=== PATIENT | male | born 1930 | race Caucasian/White ===

== ENCOUNTER → 2017-04-23 | Outpatient (CLI) | payer MEDICARE, OTHER ==
[~2017-04-23] MED LIST: AMLO10TA2 PO; ASPI-496 PO; CALC0.25 PO; DOXA2TAB9 PO; FINA5TAB4 PO; FOLI-17 PO; GLIP5TAB10 PO; ISOS60TA PO; METO-95 PO; NITR0.4T28 SL; OMEP-110 PO; PHEN100C PO; SITA50TA PO; SODI650T PO
== END | disposition home or self-care (01) ==
LOC: CFH 13:51
PROVIDERS: ATTEND Family Medicine
DX: I08.0 Rheumatic disorders of both mitral and aortic valves (principal); I11.9 Hypertensive heart disease without heart failure; I25.10 Atherosclerotic heart disease of native coronary artery without angina pectoris; Z95.5 Presence of coronary angioplasty implant and graft
CPT/HCPCS: 93306

== ENCOUNTER 2017-06-16 12:19 | Inpatient (IN) | payer MEDICARE, OTHER ==
[~2017-06-16] VITALS: Ht 172.7 cm; Wt 71.0 kg
[2017-06-16] MEDS ORDERED: PANTOPRAZOLE 80 MG in SODIUM CHLORIDE 0.9% 50 ML IVPB ONE (12:55)
[2017-06-16] MEDS ORDERED: SODIUM CHLORIDE 0.9% 1,000ML IVBOLUS ONE (13:00)
[2017-06-16] MEDS ORDERED: SODIUM CHLORIDE FLUSH 10ML SYR IVF ONE (13:00)
[2017-06-16 13:21] LABS: INTERNATIONAL NORMALIZED RATIO 1.04 (0.93-1.1); PROTHROMBIN TIME 10.8 Seconds (9.6-11.5)
[2017-06-16 13:24] LABS: ABSOLUTE RETICS # 0.043 x10^6/uL (0.5-1.5); RETICULOCYTE COUNT % 1.21 % (0.5-1.5)
[2017-06-16 13:28] LABS: ALBUMIN 3.6 g/dL (3.4-5.0); ANION GAP 10 mmol/L (5-15); CALCIUM 8.7 mg/dL (8.5-10.1); CHLORIDE 107 mmol/L (98-107)
[2017-06-16] MEDS ORDERED: LABETALOL 5MG/ML, 20ML IVPush ONE ×2 (13:30→14:30)
[2017-06-16 13:33] LABS: % IRON SATURATION 51 % (20-55); ALANINE AMINOTRANSFERASE 23 U/L (12-78); ALKALINE PHOSPHATASE 81 U/L (45-117); BILIRUBIN,TOTAL 0.7 mg/dL (0.2-1.0); CREATININE 3.92 mg/dL (0.7-1.3); IRON LEVEL 79 mcg/dL (65-175); TOTAL IRON BINDING CAPACITY 155 mcg/dL (250-450); TOTAL PROTEIN 7.4 g/dL (6.4-8.2); TROPONIN I 0.033 ng/mL (0.000-0.045)
[2017-06-16 13:34] LABS: MEAN CORPUSCULAR HEMOGLOBIN 34.1 pg (27.5-34.5); MEAN CORPUSCULAR HGB CONC 32.1 g/dL (33.2-36.2); MEAN CORPUSCULAR VOLUME 106.4 fL (81-97); MEAN PLATELET VOLUME 11.7 fL (7.4-10.4); PLATELET COUNT 263 x10^3/uL (130-400); RED BLOOD COUNT 3.56 x10^6/uL (4.38-5.82); RED CELL DISTRIBUTION WIDTH 26.5 % (9.4-14.8)
[2017-06-16 13:35] LABS: HEMOGRAM NOTE RECHECKED; MD YES
[2017-06-16 13:37] LABS: LYMPH#(MANUAL) 4.59 x10^3/uL (1-3.4); LYMPHS% (MANUAL) 51 % (22-44); MONOS#(MANUAL) 0.63 x10^3/uL (0.3-2.7); MONOS% (MANUAL) 7 % (2-9); SEG#(MANUAL) 3.78 x10^3/uL (1.8-6.8); SEGS% (MANUAL) 42 % (42-75)
[2017-06-16 13:38] LABS: ANISOCYTOSIS 2+
[2017-06-16 13:39] LABS: MICROCYTOSIS 1+; OVALOCYTES 2+; TEAR DROPS 1+
[2017-06-16 13:43] LABS: <PLATELET ESTIMATE> ADEQUATE; GIANT PLATELETS 1+; LARGE PLATELETS 1+
[2017-06-16 13:46] LABS: POLYCHROMASIA 1+
[2017-06-16 13:47] LABS: HYPOCHROMIA 1+
[2017-06-16 13:55] LABS: FOLATE LEVEL > 20.0 ng/mL (3.1-17.5)
[2017-06-16] MEDS: LABETALOL 5MG/ML, 20ML IVPush ONE ×2 (14:06→15:00)
[2017-06-16] MEDS ORDERED: LABETALOL 5MG/ML, 20ML ONE (14:09)
[2017-06-16] MEDS ORDERED: ASPIRIN 81 MG TABLET CHEW PO ONE (14:30)
[2017-06-16] MEDS ORDERED: LORazepam 2 MG/ML, 1ML ONE ×2 (14:50→19:03)
[2017-06-16] MEDS ORDERED: ONDANSETRON 2MG/ML, 2ML ONE (14:57)
[2017-06-16] MEDS ORDERED: CEFTRIAXONE PMX 1GM/50ML 50 ML ONE (15:27)
[2017-06-16] MEDS ORDERED: PLEASE ENTER WEIGHT MC SCH (15:30)
[2017-06-16] MEDS: niCARDipine 50 MG in DEXTROSE 5% 500 ML IV PRN ×5 (16:11→17:58)
[2017-06-16] MEDS ORDERED: ONDANSETRON 2MG/ML, 2ML IVPush ONE (16:30)
[2017-06-16] MEDS ORDERED: LORazepam 2 MG/ML, 1ML IVPush ONE (16:30)
[2017-06-16] MEDS ORDERED: AMLODIPINE 5 MG TABLET PO ONE (18:00)
[2017-06-16] MEDS ORDERED: BISACODYL 10 MG SUPP PR PRN (18:00)
[2017-06-16] MEDS ORDERED: ACETAMINOPHEN 325 MG TABLET PO PRN (18:00)
[2017-06-16] MEDS: ISOSORBIDE DINITRATE 30 MG TABLET PO SCH ×2 (18:00→21:00)
[2017-06-16] MEDS: ISOSORBIDE MONONITRATE ER 60 MG TABLET PO SCH ×2 (18:00→21:00)
[2017-06-16] MEDS: METOPROLOL SUCCINATE 100 MG TAB.ER.24H PO SCH (21:00)
[2017-06-16] MEDS: OMEPRAZOLE 20 MG CAPSULE.DR PO SCH (21:00)
[2017-06-16] MEDS: SODIUM BICARBONATE 650 MG TABLET PO SCH (21:00)
[2017-06-16] MEDS: HEPARIN 5,000 UNITS/ML, 1ML SQ SCH (21:49)
[2017-06-16 23:00] VITALS: BP 177/97
[2017-06-16] MEDS ORDERED: ISOSORBIDE MONONITRATE MC SCH (23:00)
[2017-06-16] MEDS ORDERED: ISOSORBIDE DINITRATE MC SCH (23:00)
[2017-06-16] MEDS: LORazepam 2 MG/ML, 1ML IVPush PRN (23:19)
[2017-06-17] LABS: CULTURE INDICATED? YES; MICROSCOPIC INDICATED
[2017-06-17] MEDS: LABETALOL 5MG/ML, 20ML IVPush PRN ×2 (00:25→05:18)
[2017-06-17] MEDS: LORazepam 2 MG/ML, 1ML IVPush PRN (02:52)
[2017-06-17] MEDS: HEPARIN 5,000 UNITS/ML, 1ML SQ SCH ×3 (02:54→17:27)
[2017-06-17] MEDS: hydrALAzine 20 MG/ML, 1ML IV PRN ×2 (03:47→22:52)
[2017-06-17 03:55] VITALS: BP 159/77
[2017-06-17 04:20] LABS: MEAN CORPUSCULAR HEMOGLOBIN 34.1 pg (27.5-34.5); MEAN CORPUSCULAR HGB CONC 32.1 g/dL (33.2-36.2); MEAN PLATELET VOLUME 11.5 fL (7.4-10.4); PLATELET COUNT 231 x10^3/uL (130-400); RED BLOOD COUNT 3.16 x10^6/uL (4.38-5.82)
[2017-06-17 04:25] LABS: ALANINE AMINOTRANSFERASE 22 U/L (12-78); ALBUMIN 3.4 g/dL (3.4-5.0); ANION GAP 13 mmol/L (5-15); CALCIUM 8.5 mg/dL (8.5-10.1); CHLORIDE 110 mmol/L (98-107); CREATININE 3.98 mg/dL (0.7-1.3)
[2017-06-17 04:28] LABS: ALKALINE PHOSPHATASE 64 U/L (45-117); BILIRUBIN,TOTAL 0.5 mg/dL (0.2-1.0); TOTAL PROTEIN 6.8 g/dL (6.4-8.2)
[2017-06-17 04:45] LABS: BASOPHILS # (AUTO) 0.05 x10^3/uL (0-0.1); BASOPHILS % (AUTO) 0 % (0-1); EOSINOPHILS # (AUTO) 0.06 x10^3/uL (0-0.4); EOSINOPHILS % (AUTO) 1 % (1-7); LYMPHOCYTES # (AUTO) 1.98 x10^3/uL (1-3.4); LYMPHOCYTES % (AUTO) 19 % (22-44); MD MORPH REVIEW ONLY; MONOCYTES % (AUTO) 11 % (2-9); NEUTROPHILS % (AUTO) 70 % (42-75)
[2017-06-17 04:49] LABS: <PLATELET ESTIMATE> ADEQUATE; ANISOCYTOSIS 2+; HYPOCHROMIA 1+; LARGE PLATELETS 1+; MICROCYTOSIS 1+; OVALOCYTES 1+; POLYCHROMASIA 1+; TEAR DROPS 1+
[2017-06-17 04:50] LABS: GIANT PLATELETS 1+
[2017-06-17] MEDS: ISOSORBIDE MONONITRATE ER 60 MG TABLET PO SCH (04:55)
[2017-06-17] MEDS: ISOSORBIDE DINITRATE 30 MG TABLET PO SCH ×4 (04:55→21:02)
[2017-06-17] MEDS: PHENYTOIN 100 MG CAPSULE PO SCH (08:18)
[2017-06-17] MEDS: DOXAZOSIN 2MG TABLET PO SCH (08:18)
[2017-06-17] MEDS: ASPIRIN 81 MG TABLET EC PO SCH (08:18)
[2017-06-17] MEDS: FINASTERIDE 5 MG TABLET PO SCH (08:19)
[2017-06-17] MEDS: OMEPRAZOLE 20 MG CAPSULE.DR PO SCH ×2 (08:19→21:02)
[2017-06-17] MEDS: SODIUM BICARBONATE 650 MG TABLET PO SCH ×2 (08:19→21:02)
[2017-06-17] MEDS: FOLIC ACID 1 MG TABLET PO SCH (08:19)
[2017-06-17] MEDS: METOPROLOL SUCCINATE 100 MG TAB.ER.24H PO SCH ×2 (08:19→21:02)
[2017-06-17] MEDS ORDERED: TAMSULOSIN 0.4 MG CAP.ER.24H PO ONE (12:30)
[2017-06-17] MEDS ORDERED: MAGNESIUM SULFATE PMX 2GM/50ML 50 ML IV ONE (13:00)
[2017-06-17 20:45] VITALS: BP 178/73
[2017-06-17] MEDS: AMLODIPINE 5 MG TABLET PO SCH (21:02)
[2017-06-17 22:50] VITALS: BP 166/71
[2017-06-17 23:46] VITALS: BP 166/71
[2017-06-18] VITALS (8 sets, daily range): BP systolic 144–193; BP diastolic 56–84
[2017-06-18] MEDS: LABETALOL 5MG/ML, 20ML IVPush PRN (01:06)
[2017-06-18] MEDS ORDERED: SODIUM CHLORIDE 0.9%, 500ML IVBOLUS ONE (02:30)
[2017-06-18] MEDS: HEPARIN 5,000 UNITS/ML, 1ML SQ SCH ×3 (02:45→17:40)
[2017-06-18] MEDS: hydrALAzine 20 MG/ML, 1ML IV PRN ×2 (03:48→13:57)
[2017-06-18 06:14] LABS: CHLORIDE 111 mmol/L (98-107)
[2017-06-18] MEDS: ISOSORBIDE DINITRATE 30 MG TABLET PO SCH ×4 (06:20→20:37)
[2017-06-18 06:35] LABS: ALANINE AMINOTRANSFERASE 16 U/L (12-78); ALBUMIN 2.9 g/dL (3.4-5.0); ALKALINE PHOSPHATASE 60 U/L (45-117); ANION GAP 14 mmol/L (5-15); BILIRUBIN,TOTAL 0.5 mg/dL (0.2-1.0); CALCIUM 7.8 mg/dL (8.5-10.1); TOTAL PROTEIN 6.2 g/dL (6.4-8.2)
[2017-06-18] MEDS ORDERED: TAMSULOSIN 0.4 MG CAP.ER.24H ONE (07:26)
[2017-06-18] MEDS: SODIUM BICARBONATE 650 MG TABLET PO SCH ×2 (07:32→20:36)
[2017-06-18] MEDS: FOLIC ACID 1 MG TABLET PO SCH (07:32)
[2017-06-18] MEDS: AMLODIPINE 5 MG TABLET PO SCH ×2 (07:32→20:37)
[2017-06-18] MEDS: PHENYTOIN 100 MG CAPSULE PO SCH (07:32)
[2017-06-18] MEDS: TAMSULOSIN 0.4 MG CAP.ER.24H PO SCH (07:32)
[2017-06-18] MEDS: FINASTERIDE 5 MG TABLET PO SCH (07:32)
[2017-06-18] MEDS: METOPROLOL SUCCINATE 100 MG TAB.ER.24H PO SCH ×2 (07:32→20:38)
[2017-06-18] MEDS: OMEPRAZOLE 20 MG CAPSULE.DR PO SCH ×2 (07:32→20:37)
[2017-06-18] MEDS: ASPIRIN 81 MG TABLET EC PO SCH (07:32)
[2017-06-18] MEDS: DOXAZOSIN 2MG TABLET PO SCH (07:33)
[2017-06-18 07:59] LABS: MEAN CORPUSCULAR HEMOGLOBIN 34.5 pg (27.5-34.5); MEAN CORPUSCULAR HGB CONC 32.5 g/dL (33.2-36.2); MEAN CORPUSCULAR VOLUME 106.2 fL (81-97); MEAN PLATELET VOLUME 12.6 fL (7.4-10.4); PLATELET COUNT 219 x10^3/uL (130-400); RED BLOOD COUNT 3.06 x10^6/uL (4.38-5.82); RED CELL DISTRIBUTION WIDTH 25.7 % (9.4-14.8)
[2017-06-18 08:00] LABS: BASOPHILS # (AUTO) 0.05 x10^3/uL (0-0.1); BASOPHILS % (AUTO) 1 % (0-1); EOSINOPHILS # (AUTO) 0.18 x10^3/uL (0-0.4); EOSINOPHILS % (AUTO) 2 % (1-7); LYMPHOCYTES # (AUTO) 2.48 x10^3/uL (1-3.4); LYMPHOCYTES % (AUTO) 30 % (22-44); MD SCAN; MONOCYTES % (AUTO) 13 % (2-9); NEUTROPHILS # (AUTO) 4.42 x10^3/uL (1.8-6.8); NEUTROPHILS % (AUTO) 54 % (42-75)
[2017-06-18] MEDS ORDERED: FURO40TA6 PO (10:34)
[2017-06-19 00:11] VITALS: BP 176/88
[2017-06-19] MEDS: LABETALOL 5MG/ML, 20ML IVPush PRN (00:13)
[2017-06-19 01:16] VITALS: BP 179/82
[2017-06-19] MEDS: hydrALAzine 20 MG/ML, 1ML IV PRN (01:24)
[2017-06-19] MEDS: HEPARIN 5,000 UNITS/ML, 1ML SQ SCH ×3 (01:24→21:57)
[2017-06-19 02:41] VITALS: BP 157/73
[2017-06-19] MEDS: ISOSORBIDE DINITRATE 30 MG TABLET PO SCH (05:35)
[2017-06-19 05:56] LABS: CHLORIDE 109 mmol/L (98-107)
[2017-06-19 06:09] LABS: ANION GAP 11 mmol/L (5-15); CALCIUM 7.5 mg/dL (8.5-10.1); CREATININE 4.32 mg/dL (0.7-1.3)
[2017-06-19 08:27] VITALS: BP 161/79
[2017-06-19] MEDS ORDERED: METOPROLOL SUCCINATE 50 MG TAB.ER.24H PO SCH (09:00)
[2017-06-19] MEDS ORDERED: METOPROLOL SUCCINATE 100 MG TAB.ER.24H PO SCH (09:00)
[2017-06-19] MEDS ORDERED: METOPROLOL SUCCINATE 25 MG TAB.ER.24H ONE (09:04)
[2017-06-19] MEDS: TAMSULOSIN 0.4 MG CAP.ER.24H PO SCH (09:10)
[2017-06-19] MEDS: SODIUM BICARBONATE 650 MG TABLET PO SCH ×2 (09:10→21:57)
[2017-06-19] MEDS: OMEPRAZOLE 20 MG CAPSULE.DR PO SCH ×2 (09:10→22:04)
[2017-06-19] MEDS: FOLIC ACID 1 MG TABLET PO SCH (09:11)
[2017-06-19] MEDS: FINASTERIDE 5 MG TABLET PO SCH (09:11)
[2017-06-19] MEDS: AMLODIPINE 5 MG TABLET PO SCH (09:11)
[2017-06-19] MEDS: DOXAZOSIN 2MG TABLET PO SCH (09:11)
[2017-06-19] MEDS: PHENYTOIN 100 MG CAPSULE PO SCH (09:11)
[2017-06-19] MEDS: ASPIRIN 81 MG TABLET EC PO SCH (09:12)
[2017-06-19 09:57] LABS: CREATININE,URINE RANDOM 68.7 mg/dL
[2017-06-19] MEDS ORDERED: DOXAZOSIN 2MG TABLET PO ONE (11:00)
[2017-06-19] MEDS: ISOSORBIDE MONONITRATE ER 60 MG TABLET PO SCH (12:13)
[2017-06-19 14:30] VITALS: BP 129/65
[2017-06-19] MEDS ORDERED: CARVEDILOL 25 MG TABLET PO SCH (18:00)
[2017-06-19 20:16] VITALS: BP 179/71
[2017-06-19] MEDS ORDERED: AMLODIPINE 5 MG TABLET PO SCH ×2 (21:00)
[2017-06-19] MEDS: CARVEDILOL 25 MG TABLET PO SCH (21:58)
[2017-06-19] MEDS: CEFTRIAXONE 1,000 MG in DEXTROSE 5% 50 ML IVPB SCH (22:47)
[2017-06-20] VITALS (10 sets, daily range): BP systolic 82–188; BP diastolic 52–117
[2017-06-20] MEDS: HEPARIN 5,000 UNITS/ML, 1ML SQ SCH ×3 (05:15→20:28)
[2017-06-20 05:22] LABS: ALANINE AMINOTRANSFERASE 14 U/L (12-78); ALBUMIN 2.6 g/dL (3.4-5.0); ANION GAP 11 mmol/L (5-15); CALCIUM 7.4 mg/dL (8.5-10.1); CHLORIDE 109 mmol/L (98-107); CREATININE 4.21 mg/dL (0.7-1.3)
[2017-06-20 05:29] LABS: % IRON SATURATION 54 % (20-55); ALKALINE PHOSPHATASE 58 U/L (45-117); BILIRUBIN,TOTAL 0.5 mg/dL (0.2-1.0); IRON LEVEL 74 mcg/dL (65-175); TOTAL IRON BINDING CAPACITY 138 mcg/dL (250-450); TOTAL PROTEIN 5.6 g/dL (6.4-8.2)
[2017-06-20 05:58] LABS: BASOPHILS # (AUTO) 0.04 x10^3/uL (0-0.1); BASOPHILS % (AUTO) 1 % (0-1); EOSINOPHILS # (AUTO) 0.11 x10^3/uL (0-0.4); EOSINOPHILS % (AUTO) 2 % (1-7); LYMPHOCYTES # (AUTO) 2.61 x10^3/uL (1-3.4); LYMPHOCYTES % (AUTO) 39 % (22-44); MD MORPH REVIEW ONLY; MEAN CORPUSCULAR HEMOGLOBIN 34.8 pg (27.5-34.5); MEAN CORPUSCULAR HGB CONC 32.5 g/dL (33.2-36.2); MEAN CORPUSCULAR VOLUME 107.2 fL (81-97); MONOCYTES # (AUTO) 0.88 x10^3/uL (0.2-0.8); MONOCYTES % (AUTO) 13 % (2-9); NEUTROPHILS % (AUTO) 45 % (42-75); PLATELET COUNT 185 x10^3/uL (130-400); RED CELL DISTRIBUTION WIDTH 26.8 % (9.4-14.8)
[2017-06-20 05:59] LABS: ANISOCYTOSIS 2+; MICROCYTOSIS 1+; OVALOCYTES 1+; SCHISTOCYTES 1+; TEAR DROPS 1+
[2017-06-20 06:01] LABS: <PLATELET ESTIMATE> ADEQUATE; GIANT PLATELETS 1+; HYPOCHROMIA 1+; LARGE PLATELETS 1+; POLYCHROMASIA 1+
[2017-06-20] MEDS: ISOSORBIDE MONONITRATE ER 60 MG TABLET PO SCH (07:47)
[2017-06-20] MEDS: TAMSULOSIN 0.4 MG CAP.ER.24H PO SCH (07:48)
[2017-06-20] MEDS: FINASTERIDE 5 MG TABLET PO SCH (07:48)
[2017-06-20] MEDS: PHENYTOIN 100 MG CAPSULE PO SCH (07:48)
[2017-06-20] MEDS: DOXAZOSIN 2MG TABLET PO SCH (07:48)
[2017-06-20] MEDS: FOLIC ACID 1 MG TABLET PO SCH (07:48)
[2017-06-20] MEDS: OMEPRAZOLE 20 MG CAPSULE.DR PO SCH ×2 (07:48→20:29)
[2017-06-20] MEDS: ASPIRIN 81 MG TABLET EC PO SCH (07:49)
[2017-06-20] MEDS: SODIUM BICARBONATE 650 MG TABLET PO SCH ×2 (07:49→20:29)
[2017-06-20] MEDS: CALCITRIOL 0.25 MCG CAPSULE PO SCH (07:49)
[2017-06-20] MEDS: POLYETHYLENE GLYCOL 17 GM PACKET PO PRN (07:49)
[2017-06-20] MEDS: CARVEDILOL 25 MG TABLET PO SCH ×2 (07:50→20:28)
[2017-06-20] MEDS ORDERED: SODIUM CHLORIDE 0.9%, 500ML IVBOLUS ONE (09:30)
[2017-06-20] MEDS: ERGOCALCIFEROL 50,000 UNIT CAPSULE PO SCH (09:39)
[2017-06-20] MEDS: DARBEPOETIN 40 MCG/ML SQ SCH (12:55)
[2017-06-20] MEDS: CEFTRIAXONE 1,000 MG in DEXTROSE 5% 50 ML IVPB SCH (22:07)
[2017-06-20] MEDS: AMLODIPINE 5 MG TABLET PO SCH ×2 (22:08→22:18)
[2017-06-21] VITALS (13 sets, daily range): BP systolic 101–193; BP diastolic 50–82
[2017-06-21] MEDS: HEPARIN 5,000 UNITS/ML, 1ML SQ SCH ×3 (05:11→20:13)
[2017-06-21] MEDS: hydrALAzine 20 MG/ML, 1ML IV PRN (05:12)
[2017-06-21] MEDS: TAMSULOSIN 0.4 MG CAP.ER.24H PO SCH (08:16)
[2017-06-21] MEDS: DOXAZOSIN 2MG TABLET PO SCH (08:16)
[2017-06-21] MEDS: CARVEDILOL 25 MG TABLET PO SCH ×2 (08:16→20:13)
[2017-06-21] MEDS: ASPIRIN 81 MG TABLET EC PO SCH (08:16)
[2017-06-21] MEDS: SODIUM BICARBONATE 650 MG TABLET PO SCH ×2 (08:17→20:13)
[2017-06-21] MEDS: OMEPRAZOLE 20 MG CAPSULE.DR PO SCH ×2 (08:17→20:13)
[2017-06-21] MEDS: ISOSORBIDE MONONITRATE ER 60 MG TABLET PO SCH (08:17)
[2017-06-21] MEDS: FINASTERIDE 5 MG TABLET PO SCH (08:17)
[2017-06-21] MEDS: FOLIC ACID 1 MG TABLET PO SCH (08:17)
[2017-06-21] MEDS: PHENYTOIN 100 MG CAPSULE PO SCH (08:17)
[2017-06-21] MEDS ORDERED: ONDANSETRON 2MG/ML, 2ML ONE (09:45)
[2017-06-21] MEDS ORDERED: ONDANSETRON 2MG/ML, 2ML IVPush PRN (10:00)
[2017-06-21] MEDS ORDERED: SODIUM CHLORIDE 0.9%, 250ML IVBOLUS ONE ×2 (11:00→11:15)
[2017-06-21] MEDS ORDERED: AMLODIPINE 5 MG TABLET PO SCH (21:00)
[2017-06-21] MEDS: CEFTRIAXONE 1,000 MG in DEXTROSE 5% 50 ML IVPB SCH (22:31)
[2017-06-22] VITALS (12 sets, daily range): BP systolic 138–189; BP diastolic 65–78
[2017-06-22] MEDS: HEPARIN 5,000 UNITS/ML, 1ML SQ SCH ×3 (05:00→20:16)
[2017-06-22] MEDS: FOLIC ACID 1 MG TABLET PO SCH (08:57)
[2017-06-22] MEDS: ASPIRIN 81 MG TABLET EC PO SCH (08:57)
[2017-06-22] MEDS: FINASTERIDE 5 MG TABLET PO SCH (08:57)
[2017-06-22] MEDS: TAMSULOSIN 0.4 MG CAP.ER.24H PO SCH (08:57)
[2017-06-22] MEDS: OMEPRAZOLE 20 MG CAPSULE.DR PO SCH ×3 (08:57→21:42)
[2017-06-22] MEDS: CARVEDILOL 25 MG TABLET PO SCH ×2 (10:21→20:17)
[2017-06-22] MEDS: SODIUM BICARBONATE 650 MG TABLET PO SCH ×2 (10:22→20:16)
[2017-06-22] MEDS: ISOSORBIDE MONONITRATE ER 60 MG TABLET PO SCH (10:22)
[2017-06-22] MEDS: PHENYTOIN 100 MG CAPSULE PO SCH (10:22)
[2017-06-22] MEDS: DOXAZOSIN 2MG TABLET PO SCH (11:18)
[2017-06-22] MEDS: AMLODIPINE 5 MG TABLET PO SCH (21:43)
[2017-06-22] MEDS ORDERED: CEFTRIAXONE 1,000 MG in DEXTROSE 5% 50 ML IVPB SCH (22:30)
[2017-06-22] MEDS: hydrALAzine 20 MG/ML, 1ML IV PRN (22:48)
[2017-06-23] VITALS (11 sets, daily range): BP systolic 142–202; BP diastolic 58–86
[2017-06-23 05:30] LABS: MEAN CORPUSCULAR HEMOGLOBIN 34.6 pg (27.5-34.5); MEAN CORPUSCULAR HGB CONC 32.7 g/dL (33.2-36.2); MEAN CORPUSCULAR VOLUME 105.9 fL (81-97); RED BLOOD COUNT 2.94 x10^6/uL (4.38-5.82); RED CELL DISTRIBUTION WIDTH 27.4 % (9.4-14.8)
[2017-06-23 05:37] LABS: MEAN PLATELET VOLUME 13.7 fL (7.4-10.4); PLATELET COUNT 177 x10^3/uL (130-400)
[2017-06-23 05:46] LABS: ALBUMIN 2.6 g/dL (3.4-5.0); ANION GAP 10 mmol/L (5-15); CALCIUM 7.7 mg/dL (8.5-10.1); CHLORIDE 108 mmol/L (98-107)
[2017-06-23 05:51] LABS: ALANINE AMINOTRANSFERASE 37 U/L (12-78); ALKALINE PHOSPHATASE 59 U/L (45-117); BILIRUBIN,TOTAL 0.3 mg/dL (0.2-1.0); CREATININE 4.44 mg/dL (0.7-1.3); TOTAL PROTEIN 5.6 g/dL (6.4-8.2)
[2017-06-23 06:21] LABS: MD YES
[2017-06-23 06:25] LABS: ANISOCYTOSIS 2+; EOS#(MANUAL) 0.07 x10^3/uL (0.0-0.4); EOS% (MANUAL) 1 % (1-7); HYPOCHROMIA 1+; LYMPH#(MANUAL) 2.86 x10^3/uL (1-3.4); LYMPHS% (MANUAL) 44 % (22-44); MICROCYTOSIS 1+; MONOS#(MANUAL) 0.98 x10^3/uL (0.3-2.7); MONOS% (MANUAL) 15 % (2-9); OVALOCYTES 1+; POLYCHROMASIA 1+; SCHISTOCYTES 1+; SEGS% (MANUAL) 40 % (42-75); TEAR DROPS 1+
[2017-06-23 06:26] LABS: <PLATELET ESTIMATE> ADEQUATE; GIANT PLATELETS 1+; LARGE PLATELETS 1+
[2017-06-23] MEDS: FOLIC ACID 1 MG TABLET PO SCH (08:20)
[2017-06-23] MEDS: FINASTERIDE 5 MG TABLET PO SCH (08:20)
[2017-06-23] MEDS: OMEPRAZOLE 20 MG CAPSULE.DR PO SCH ×2 (08:20→20:09)
[2017-06-23] MEDS: ASPIRIN 81 MG TABLET EC PO SCH (08:20)
[2017-06-23] MEDS: SODIUM BICARBONATE 650 MG TABLET PO SCH ×4 (08:20→20:09)
[2017-06-23] MEDS: TAMSULOSIN 0.4 MG CAP.ER.24H PO SCH (08:20)
[2017-06-23] MEDS: PHENYTOIN 100 MG CAPSULE PO SCH (08:20)
[2017-06-23] MEDS: HEPARIN 5,000 UNITS/ML, 1ML SQ SCH ×3 (08:21→23:30)
[2017-06-23] MEDS: ISOSORBIDE MONONITRATE ER 60 MG TABLET PO SCH (09:39)
[2017-06-23] MEDS: CALCITRIOL 0.25 MCG CAPSULE PO SCH (09:39)
[2017-06-23] MEDS: CARVEDILOL 25 MG TABLET PO SCH ×2 (09:39→20:09)
[2017-06-23] MEDS: DOXAZOSIN 2MG TABLET PO SCH (12:35)
[2017-06-23] MEDS: AMLODIPINE 5 MG TABLET PO SCH (21:37)
[2017-06-23] MEDS ORDERED: CEFTRIAXONE 1,000 MG in SODIUM CHLORIDE 0.9% 50 ML IV SCH (22:30)
[2017-06-24 01:54] VITALS: BP 180/68
[2017-06-24 06:03] LABS: ALANINE AMINOTRANSFERASE 34 U/L (12-78); ANION GAP 12 mmol/L (5-15); CALCIUM 7.9 mg/dL (8.5-10.1); CHLORIDE 104 mmol/L (98-107)
[2017-06-24 06:05] LABS: ALKALINE PHOSPHATASE 66 U/L (45-117); BILIRUBIN,TOTAL 0.3 mg/dL (0.2-1.0); TOTAL PROTEIN 6.3 g/dL (6.4-8.2)
[2017-06-24 06:45] LABS: MD YES; MEAN CORPUSCULAR HEMOGLOBIN 35.2 pg (27.5-34.5); MEAN CORPUSCULAR VOLUME 106.4 fL (81-97); MEAN PLATELET VOLUME 12.5 fL (7.4-10.4); PLATELET COUNT 185 x10^3/uL (130-400); RED BLOOD COUNT 2.97 x10^6/uL (4.38-5.82); RED CELL DISTRIBUTION WIDTH 26.9 % (9.4-14.8)
[2017-06-24 06:48] LABS: BAND#(MANUAL) 0.19 x10^3/uL; BANDS%(MANUAL) 3 % (0-7); EOS#(MANUAL) 0.06 x10^3/uL (0.0-0.4); EOS% (MANUAL) 1 % (1-7); LYMPH#(MANUAL) 2.36 x10^3/uL (1-3.4); LYMPHS% (MANUAL) 38 % (22-44); MONOS#(MANUAL) 0.74 x10^3/uL (0.3-2.7); MONOS% (MANUAL) 12 % (2-9); REACTIVE LYMPHS # (MANUAL) 0.06 x10^3/uL (0-0); REACTIVE LYMPHS % (MANUAL) 1 % (0-0); SEG#(MANUAL) 2.79 x10^3/uL (1.8-6.8); SEGS% (MANUAL) 45 % (42-75)
[2017-06-24 06:49] LABS: ANISOCYTOSIS 2+; HYPOCHROMIA 1+; MICROCYTOSIS 1+; OVALOCYTES 1+; POLYCHROMASIA 1+; SCHISTOCYTES 1+; TEAR DROPS 1+
[2017-06-24 06:50] LABS: <PLATELET ESTIMATE> ADEQUATE; GIANT PLATELETS 1+; LARGE PLATELETS 1+
[2017-06-24] MEDS: HEPARIN 5,000 UNITS/ML, 1ML SQ SCH ×3 (07:23→23:26)
[2017-06-24 08:07] VITALS: BP 193/68
[2017-06-24] MEDS: ISOSORBIDE MONONITRATE ER 60 MG TABLET PO SCH (08:17)
[2017-06-24] MEDS: CARVEDILOL 25 MG TABLET PO SCH ×2 (08:17→20:16)
[2017-06-24] MEDS ORDERED: LIDOCAINE 2%, 20ML ONE (08:30)
[2017-06-24] MEDS ORDERED: NALOXONE 1 MG/ML, 2ML ONE (08:48)
[2017-06-24] MEDS ORDERED: FENTANYL PF 100 MCG/2ML ONE ×2 (08:48)
[2017-06-24] MEDS ORDERED: MIDAZOLAM 1 MG/ML, 2ML ONE ×2 (08:48)
[2017-06-24] MEDS ORDERED: FLUMAZENIL 0.1 MG/1 ML, 5ML ONE (08:48)
[2017-06-24] MEDS: DOXAZOSIN 2MG TABLET PO SCH (09:00)
[2017-06-24] MEDS: ASPIRIN 81 MG TABLET EC PO SCH (09:00)
[2017-06-24 14:06] VITALS: BP 141/74
[2017-06-24] MEDS: FINASTERIDE 5 MG TABLET PO SCH (14:17)
[2017-06-24] MEDS: TAMSULOSIN 0.4 MG CAP.ER.24H PO SCH (14:17)
[2017-06-24] MEDS: FOLIC ACID 1 MG TABLET PO SCH (14:17)
[2017-06-24] MEDS: OMEPRAZOLE 20 MG CAPSULE.DR PO SCH ×2 (14:17→20:16)
[2017-06-24] MEDS: PHENYTOIN 100 MG CAPSULE PO SCH (14:18)
[2017-06-24 17:19] VITALS: BP 172/71
[2017-06-24 19:21] VITALS: BP 163/71
[2017-06-24 21:37] VITALS: BP 155/74
[2017-06-24] MEDS: AMLODIPINE 5 MG TABLET PO SCH (21:44)
[2017-06-25 02:13] VITALS: BP 167/70
[2017-06-25 05:43] LABS: ALBUMIN 2.6 g/dL (3.4-5.0); ANION GAP 8 mmol/L (5-15); CALCIUM 7.6 mg/dL (8.5-10.1); CHLORIDE 106 mmol/L (98-107)
[2017-06-25 05:48] LABS: ALANINE AMINOTRANSFERASE 28 U/L (12-78); ALKALINE PHOSPHATASE 57 U/L (45-117); BILIRUBIN,TOTAL 0.4 mg/dL (0.2-1.0); CREATININE 3.34 mg/dL (0.7-1.3); TOTAL PROTEIN 5.6 g/dL (6.4-8.2)
[2017-06-25 06:01] LABS: MD YES; MEAN CORPUSCULAR HEMOGLOBIN 34.5 pg (27.5-34.5); MEAN CORPUSCULAR HGB CONC 32.7 g/dL (33.2-36.2); MEAN CORPUSCULAR VOLUME 105.3 fL (81-97); MEAN PLATELET VOLUME 13.1 fL (7.4-10.4); PLATELET COUNT 181 x10^3/uL (130-400); RED BLOOD COUNT 2.74 x10^6/uL (4.38-5.82); RED CELL DISTRIBUTION WIDTH 26.6 % (9.4-14.8)
[2017-06-25 06:04] LABS: ANISOCYTOSIS 2+; BAND#(MANUAL) 0.07 x10^3/uL; BANDS%(MANUAL) 1 % (0-7); EOS% (MANUAL) 3 % (1-7); HYPOCHROMIA 1+; LYMPH#(MANUAL) 1.81 x10^3/uL (1-3.4); LYMPHS% (MANUAL) 27 % (22-44); MICROCYTOSIS 1+; MONOS% (MANUAL) 12 % (2-9); REACTIVE LYMPHS # (MANUAL) 0.13 x10^3/uL (0-0); REACTIVE LYMPHS % (MANUAL) 2 % (0-0); SEG#(MANUAL) 3.69 x10^3/uL (1.8-6.8); SEGS% (MANUAL) 55 % (42-75)
[2017-06-25 06:05] LABS: <PLATELET ESTIMATE> ADEQUATE; GIANT PLATELETS 1+; LARGE PLATELETS 1+; OVALOCYTES 1+; POLYCHROMASIA 1+; SCHISTOCYTES 1+; TEAR DROPS 1+
[2017-06-25 07:14] VITALS: BP 186/82
[2017-06-25] MEDS: HEPARIN 5,000 UNITS/ML, 1ML SQ SCH ×3 (07:30→22:41)
[2017-06-25] MEDS: DOXAZOSIN 2MG TABLET PO SCH (09:00)
[2017-06-25] MEDS: FOLIC ACID 1 MG TABLET PO SCH (09:00)
[2017-06-25] MEDS: PHENYTOIN 100 MG CAPSULE PO SCH (09:06)
[2017-06-25] MEDS: TAMSULOSIN 0.4 MG CAP.ER.24H PO SCH (09:07)
[2017-06-25] MEDS: OMEPRAZOLE 20 MG CAPSULE.DR PO SCH ×2 (09:07→22:29)
[2017-06-25] MEDS: FINASTERIDE 5 MG TABLET PO SCH (09:07)
[2017-06-25] MEDS: ASPIRIN 81 MG TABLET EC PO SCH (09:07)
[2017-06-25] MEDS: CARVEDILOL 25 MG TABLET PO SCH ×2 (09:07→22:39)
[2017-06-25 15:18] VITALS: BP 122/97
[2017-06-25 20:00] VITALS: BP 127/80
[2017-06-25] MEDS ORDERED: LOSARTAN 25MG TABLET PO SCH (21:00)
[2017-06-25 22:30] VITALS: BP 171/77
[2017-06-25] MEDS: AMLODIPINE 5 MG TABLET PO SCH (22:34)
[2017-06-26] VITALS (9 sets, daily range): BP systolic 135–198; BP diastolic 72–86
[2017-06-26 05:35] LABS: CHLORIDE 103 mmol/L (98-107)
[2017-06-26 05:52] LABS: ALANINE AMINOTRANSFERASE 29 U/L (12-78); ALBUMIN 2.5 g/dL (3.4-5.0); ALKALINE PHOSPHATASE 58 U/L (45-117); ANION GAP 10 mmol/L (5-15); BILIRUBIN,TOTAL 0.4 mg/dL (0.2-1.0); CALCIUM 7.5 mg/dL (8.5-10.1); CREATININE 3.07 mg/dL (0.7-1.3); TOTAL PROTEIN 5.4 g/dL (6.4-8.2)
[2017-06-26 05:57] LABS: BASOPHILS # (AUTO) 0.04 x10^3/uL (0-0.1); BASOPHILS % (AUTO) 1 % (0-1); EOSINOPHILS # (AUTO) 0.07 x10^3/uL (0-0.4); EOSINOPHILS % (AUTO) 1 % (1-7); LYMPHOCYTES # (AUTO) 2.55 x10^3/uL (1-3.4); LYMPHOCYTES % (AUTO) 36 % (22-44); MD SCAN; MEAN CORPUSCULAR HEMOGLOBIN 34.1 pg (27.5-34.5); MEAN CORPUSCULAR HGB CONC 32.1 g/dL (33.2-36.2); MEAN CORPUSCULAR VOLUME 106.2 fL (81-97); MEAN PLATELET VOLUME 12.2 fL (7.4-10.4); MONOCYTES # (AUTO) 1.29 x10^3/uL (0.2-0.8); MONOCYTES % (AUTO) 18 % (2-9); NEUTROPHILS # (AUTO) 3.11 x10^3/uL (1.8-6.8); NEUTROPHILS % (AUTO) 44 % (42-75); PLATELET COUNT 175 x10^3/uL (130-400); RED BLOOD COUNT 2.69 x10^6/uL (4.38-5.82)
[2017-06-26] MEDS: HEPARIN 5,000 UNITS/ML, 1ML SQ SCH ×2 (07:30→15:30)
[2017-06-26] MEDS: TAMSULOSIN 0.4 MG CAP.ER.24H PO SCH (09:00)
[2017-06-26] MEDS: DOXAZOSIN 2MG TABLET PO SCH (09:00)
[2017-06-26] MEDS: OMEPRAZOLE 20 MG CAPSULE.DR PO SCH ×2 (09:00→20:33)
[2017-06-26] MEDS ORDERED: ISOSORBIDE MONONITRATE ER 30 MG TABLET PO SCH ×2 (09:00→21:00)
[2017-06-26] MEDS: CARVEDILOL 25 MG TABLET PO SCH (09:00)
[2017-06-26] MEDS: FOLIC ACID 1 MG TABLET PO SCH (16:07)
[2017-06-26] MEDS: ASPIRIN 81 MG TABLET EC PO SCH (16:07)
[2017-06-26] MEDS: PHENYTOIN 100 MG CAPSULE PO SCH (16:08)
[2017-06-26] MEDS: FINASTERIDE 5 MG TABLET PO SCH (16:08)
[2017-06-26] MEDS: POLYETHYLENE GLYCOL 17 GM PACKET PO PRN (20:33)
[2017-06-26] MEDS: AMLODIPINE 5 MG TABLET PO SCH (20:33)
[2017-06-26] MEDS ORDERED: LOSARTAN 50MG TABLET PO SCH ×2 (21:00)
[2017-06-26] MEDS ORDERED: CARVEDILOL 12.5 MG TABLET PO SCH (21:00)
[2017-06-27] MEDS: HEPARIN 5,000 UNITS/ML, 1ML SQ SCH ×4 (00:47→22:33)
[2017-06-27 01:53] VITALS: BP 186/76
[2017-06-27] MEDS: LABETALOL 5MG/ML, 20ML IVPush PRN (01:57)
[2017-06-27 05:38] LABS: ALBUMIN 2.5 g/dL (3.4-5.0); ANION GAP 7 mmol/L (5-15); CALCIUM 7.6 mg/dL (8.5-10.1); CHLORIDE 102 mmol/L (98-107)
[2017-06-27 05:44] LABS: ALANINE AMINOTRANSFERASE 30 U/L (12-78); ALKALINE PHOSPHATASE 57 U/L (45-117); BILIRUBIN,TOTAL 0.6 mg/dL (0.2-1.0); CREATININE 2.21 mg/dL (0.7-1.3); TOTAL PROTEIN 5.5 g/dL (6.4-8.2)
[2017-06-27 05:51] VITALS: BP 164/52
[2017-06-27 06:16] LABS: MD YES; MEAN CORPUSCULAR HEMOGLOBIN 34.7 pg (27.5-34.5); MEAN CORPUSCULAR HGB CONC 32.7 g/dL (33.2-36.2); MEAN CORPUSCULAR VOLUME 106.3 fL (81-97); PLATELET COUNT 192 x10^3/uL (130-400); RED BLOOD COUNT 2.64 x10^6/uL (4.38-5.82); RED CELL DISTRIBUTION WIDTH 26.2 % (9.4-14.8)
[2017-06-27 06:18] LABS: LYMPHS% (MANUAL) 37 % (22-44); REACTIVE LYMPHS # (MANUAL) 0.22 x10^3/uL (0-0); REACTIVE LYMPHS % (MANUAL) 3 % (0-0)
[2017-06-27 06:19] LABS: ANISOCYTOSIS 2+; HYPOCHROMIA 1+; MICROCYTOSIS 1+; MONOS#(MANUAL) 0.95 x10^3/uL (0.3-2.7); MONOS% (MANUAL) 13 % (2-9); OVALOCYTES 1+; SCHISTOCYTES 1+; SEG#(MANUAL) 3.43 x10^3/uL (1.8-6.8); SEGS% (MANUAL) 47 % (42-75)
[2017-06-27 06:20] LABS: TEAR DROPS 1+
[2017-06-27 06:21] LABS: <PLATELET ESTIMATE> ADEQUATE; GIANT PLATELETS 1+; LARGE PLATELETS 1+
[2017-06-27 07:01] VITALS: BP 166/73
[2017-06-27] MEDS ORDERED: DOXAZOSIN 2MG TABLET PO SCH (09:00)
[2017-06-27] MEDS: FOLIC ACID 1 MG TABLET PO SCH (10:03)
[2017-06-27] MEDS: PHENYTOIN 100 MG CAPSULE PO SCH (10:04)
[2017-06-27] MEDS: ERGOCALCIFEROL 50,000 UNIT CAPSULE PO SCH (10:04)
[2017-06-27] MEDS: OMEPRAZOLE 20 MG CAPSULE.DR PO SCH ×2 (10:04→22:31)
[2017-06-27] MEDS: ASPIRIN 81 MG TABLET EC PO SCH (10:05)
[2017-06-27] MEDS: CALCITRIOL 0.25 MCG CAPSULE PO SCH (10:05)
[2017-06-27] MEDS: FINASTERIDE 5 MG TABLET PO SCH (14:01)
[2017-06-27] MEDS: DARBEPOETIN 40 MCG/ML SQ SCH (14:01)
[2017-06-27 14:08] VITALS: BP 144/83
[2017-06-27] MEDS: CARVEDILOL 25 MG TABLET PO SCH ×2 (18:26→22:21)
[2017-06-27 19:59] VITALS: BP 181/71
[2017-06-27] MEDS ORDERED: LOSARTAN 50MG TABLET PO SCH (21:00)
[2017-06-27] MEDS: AMLODIPINE 5 MG TABLET PO SCH (22:31)
[2017-06-27] MEDS: TAMSULOSIN 0.4 MG CAP.ER.24H PO SCH (22:32)
[2017-06-28 01:45] VITALS: BP 191/81
[2017-06-28] MEDS: LABETALOL 5MG/ML, 20ML IVPush PRN (02:10)
[2017-06-28 04:16] VITALS: BP 178/82
[2017-06-28] MEDS ORDERED: CARVEDILOL 25 MG TABLET PO SCH (06:00)
[2017-06-28] MEDS: HEPARIN 5,000 UNITS/ML, 1ML SQ SCH ×2 (07:30→15:30)
[2017-06-28 08:58] LABS: ALBUMIN 2.7 g/dL (3.4-5.0); ANION GAP 7 mmol/L (5-15); CALCIUM 7.8 mg/dL (8.5-10.1); CHLORIDE 102 mmol/L (98-107); CREATININE 3.12 mg/dL (0.7-1.3)
[2017-06-28] MEDS ORDERED: DOXAZOSIN 2MG TABLET PO SCH (09:00)
[2017-06-28 09:29] VITALS: BP 163/70
[2017-06-28] MEDS ORDERED: DOXA2TAB9 PO (12:01)
[2017-06-28] MEDS ORDERED: ERGO500017 PO (12:01)
[2017-06-28] MEDS ORDERED: LOSA50TA2 PO (12:01)
[2017-06-28] MEDS ORDERED: CARV25TA12 PO (12:01)
[2017-06-28 13:30] VITALS: BP 172/84
[2017-06-28] MEDS: PHENYTOIN 100 MG CAPSULE PO SCH (14:58)
[2017-06-28] MEDS: ASPIRIN 81 MG TABLET EC PO SCH (14:58)
[2017-06-28] MEDS: TAMSULOSIN 0.4 MG CAP.ER.24H PO SCH (14:58)
[2017-06-28] MEDS: OMEPRAZOLE 20 MG CAPSULE.DR PO SCH (14:59)
[2017-06-28] MEDS: FOLIC ACID 1 MG TABLET PO SCH (14:59)
[2017-06-28] MEDS: FINASTERIDE 5 MG TABLET PO SCH (14:59)
== END 2017-06-28 16:40 | DRG 673 ==
LOC: ED 15:23 → EDIP 15:24 → ED 18:02 → CCU 22:39 → 4EST 06-17 20:27 → 4WST 06-24 11:54
PROVIDERS: ADMIT Hospitalist; ATTEND Hospitalist
PROC: 0JH63XZ Insertion of Tunneled Vascular Access Device into Chest Subcutaneous Tissue and Fascia, Percutaneous Approach (ICD-10-PCS; principal; 2017-06-24)
PROC: 02HV33Z Insertion of Infusion Device into Superior Vena Cava, Percutaneous Approach (ICD-10-PCS; 2017-06-24)
PROC: B5181ZA Fluoroscopy of Superior Vena Cava using Low Osmolar Contrast, Guidance (ICD-10-PCS; 2017-06-24)
PROC: 5A1D70Z Performance of Urinary Filtration, Intermittent, Less than 6 Hours Per Day (ICD-10-PCS; 2017-06-24)
PROC: 5A1D70Z Performance of Urinary Filtration, Intermittent, Less than 6 Hours Per Day (ICD-10-PCS; 2017-06-25)
PROC: 5A1D70Z Performance of Urinary Filtration, Intermittent, Less than 6 Hours Per Day (ICD-10-PCS; 2017-06-26)
PROC: 5A1D70Z Performance of Urinary Filtration, Intermittent, Less than 6 Hours Per Day (ICD-10-PCS; 2017-06-28)
DX: N17.9 Acute kidney failure, unspecified (principal); E43 Unspecified severe protein-calorie malnutrition; E87.2 Acidosis; I67.4 Hypertensive encephalopathy; I12.0 Hypertensive chronic kidney disease with stage 5 chronic kidney disease or end stage renal disease; I16.1 Hypertensive emergency; R47.01 Aphasia; N39.0 Urinary tract infection, site not specified; E11.22 Type 2 diabetes mellitus with diabetic chronic kidney disease; E83.51 Hypocalcemia; N25.0 Renal osteodystrophy; N18.6 End stage renal disease; D63.1 Anemia in chronic kidney disease; D53.9 Nutritional anemia, unspecified; Z68.23 Body mass index [BMI] 23.0-23.9, adult; E55.9 Vitamin D deficiency, unspecified; G40.909 Epilepsy, unspecified, not intractable, without status epilepticus; H70.90 Unspecified mastoiditis, unspecified ear; I34.0 Nonrheumatic mitral (valve) insufficiency; K21.9 Gastro-esophageal reflux disease without esophagitis; N40.0 Benign prostatic hyperplasia without lower urinary tract symptoms; Z91.14 Patient's other noncompliance with medication regimen; N28.1 Cyst of kidney, acquired; K30 Functional dyspepsia
CPT/HCPCS: 36415; 36558; 70450; 70551; 71045; 76770; 76937; 77001; 80048; 80053; 80069; 80185; 80186; 81001; 82306; 82436; 82570; 82607; 82728; 82746; 83540; 83550; 83735; 83970; 84100; 84133; 84156; 84300; 84443; 84484; 85025; 85045; 85610; 86480; 86704; 86706; 86708; 86803; 86850; 86900; 87081; 87086; 87340; 93005; 93880; 96374; 96375; 96376; 99156; 99157; C1894; J0696; J0881; J1644; J2250; J2405; J3010; J3490; C1750; C1769; C9113; G0365; J0360; J1642; J2060; J2310; J3475; J7030; J7040; J7050; J7060

== ENCOUNTER 2017-12-24 10:11 | Emergency (ER) | payer MEDICARE, OTHER ==
[~2017-12-24] VITALS: Ht 172.7 cm; Wt 63.8 kg
[~2017-12-24 10:11] MED LIST changes: +CARV25TA12 PO; +ERGO500017 PO; +FURO40TA6 PO; +LOSA50TA2 PO
[2017-12-24] MEDS ORDERED: UBID75CA PO (10:50)
[2017-12-24] MEDS ORDERED: CARV12.543 PO (10:50)
[2017-12-24] MEDS ORDERED: TAMS-11 PO (10:50)
[2017-12-24] MEDS ORDERED: CHOL10003 PO (10:50)
[2017-12-24] MEDS ORDERED: METOPROLOL 1 MG/ML, 5ML IVPush ONE (11:00)
[2017-12-24] MEDS ORDERED: SODIUM CHLORIDE FLUSH 10ML SYR IVF ONE (11:00)
[2017-12-24] MEDS ORDERED: METOPROLOL 1 MG/ML, 5ML ONE (11:18)
[2017-12-24 11:26] LABS: ALANINE AMINOTRANSFERASE 20 U/L (12-78); ALBUMIN 3.5 g/dL (3.4-5.0); ANION GAP 9 mmol/L (5-15); CALCIUM 8.8 mg/dL (8.5-10.1); CHLORIDE 100 mmol/L (98-107); CREATININE 3.65 mg/dL (0.7-1.3)
[2017-12-24 11:30] LABS: ALKALINE PHOSPHATASE 82 U/L (45-117); BILIRUBIN,TOTAL 0.6 mg/dL (0.2-1.0); TOTAL PROTEIN 7.4 g/dL (6.4-8.2); TROPONIN I < 0.015 ng/mL (0.000-0.045)
[2017-12-24 11:32] LABS: INTERNATIONAL NORMALIZED RATIO 1.08 (0.93-1.1); PROTHROMBIN TIME 11.2 Seconds (9.6-11.5)
[2017-12-24 12:05] LABS: MEAN CORPUSCULAR HEMOGLOBIN 38.8 pg (27.5-34.5); MEAN CORPUSCULAR HGB CONC 33.4 g/dL (33.2-36.2); MEAN CORPUSCULAR VOLUME 116.4 fL (81-97); MEAN PLATELET VOLUME 10.8 fL (7.4-10.4); PLATELET COUNT 221 x10^3/uL (130-400); RED BLOOD COUNT 2.53 x10^6/uL (4.38-5.82)
[2017-12-24 12:52] LABS: BASOPHILS # (AUTO) 0.03 x10^3/uL (0-0.1); BASOPHILS % (AUTO) 1 % (0-1); EOSINOPHILS # (AUTO) 0.13 x10^3/uL (0-0.4); EOSINOPHILS % (AUTO) 3 % (1-7); LYMPHOCYTES # (AUTO) 1.74 x10^3/uL (1-3.4); LYMPHOCYTES % (AUTO) 35 % (22-44); MD MORPH REVIEW ONLY; MONOCYTES # (AUTO) 0.69 x10^3/uL (0.2-0.8); MONOCYTES % (AUTO) 14 % (2-9); NEUTROPHILS # (AUTO) 2.45 x10^3/uL (1.8-6.8); NEUTROPHILS % (AUTO) 49 % (42-75)
[2017-12-24 12:59] LABS: ANISOCYTOSIS 2+; HYPOCHROMIA 1+; SCHISTOCYTES 1+
[2017-12-24 13:00] LABS: <PLATELET ESTIMATE> ADEQUATE; <PLT MORPHOLOGY> NORMAL PLT MORPH
[2017-12-24 13:23] VITALS: BP 149/60
== END 2017-12-24 13:25 | disposition home or self-care (01) ==
LOC: ED 10:47
DX: E11.22 Type 2 diabetes mellitus with diabetic chronic kidney disease (principal); I13.11 Hypertensive heart and chronic kidney disease without heart failure, with stage 5 chronic kidney disease, or end stage renal disease; N18.6 End stage renal disease; Z99.2 Dependence on renal dialysis; Z95.5 Presence of coronary angioplasty implant and graft
CPT/HCPCS: 36415; 71045; 80053; 83880; 84484; 85025; 85610; 85730; 93005; 96374

== ENCOUNTER 2018-04-07 09:13 | Observation (INO) | payer MEDICARE, OTHER ==
[~2018-04-07] VITALS: Ht 170.2 cm; Wt 64.0 kg
[~2018-04-07 09:13] MED LIST changes: -AMLO10TA2 PO; +AMLO10TA6 PO; +CARV12.543 PO; +CHOL10003 PO; +TAMS-11 PO; +UBID75CA PO
[2018-04-07] MEDS ORDERED: ASPIRIN 81 MG TABLET CHEW PO ONE (10:00)
[2018-04-07] MEDS ORDERED: MAALOX/HYOSCYAMINE/LIDOCAINE 45 ML BTL PO ONE (10:00)
[2018-04-07] MEDS ORDERED: SODIUM CHLORIDE FLUSH 10ML SYR IVF ONE (10:00)
[2018-04-07] MEDS ORDERED: MAALOX/HYOSCYAMINE/LIDOCAINE 45 ML BTL ONE (10:27)
[2018-04-07] MEDS ORDERED: ASPIRIN 81 MG TABLET CHEW ONE (10:27)
[2018-04-07 10:32] LABS: ALANINE AMINOTRANSFERASE 21 U/L (12-78); ALBUMIN 3.8 g/dL (3.4-5.0); ANION GAP 10 mmol/L (5-15); CALCIUM 9.1 mg/dL (8.5-10.1); CHLORIDE 101 mmol/L (98-107); CREATININE 5.62 mg/dL (0.7-1.3)
[2018-04-07 10:42] LABS: ALKALINE PHOSPHATASE 79 U/L (45-117); BILIRUBIN,TOTAL 0.5 mg/dL (0.2-1.0); TOTAL PROTEIN 8.1 g/dL (6.4-8.2); TROPONIN I 0.031 ng/mL (0.000-0.045)
[2018-04-07] MEDS ORDERED: CALC0.25 PO (10:42)
[2018-04-07] MEDS ORDERED: SODI650T PO (10:42)
[2018-04-07] MEDS ORDERED: VITA1TAB19 PO (10:42)
[2018-04-07] MEDS ORDERED: METO-99 PO (10:42)
[2018-04-07] MEDS ORDERED: ISOS60TA36 PO (10:42)
[2018-04-07] MEDS ORDERED: GLIP5TAB22 PO (10:42)
[2018-04-07] MEDS ORDERED: ALPH100C PO (10:42)
[2018-04-07] MEDS ORDERED: UBID100C24 PO (10:42)
[2018-04-07 10:56] LABS: BASOPHILS # (AUTO) 0.04 x10^3/uL (0-0.1); BASOPHILS % (AUTO) 1 % (0-1); EOSINOPHILS # (AUTO) 0.16 x10^3/uL (0-0.4); EOSINOPHILS % (AUTO) 3 % (1-7); LYMPHOCYTES # (AUTO) 2.11 x10^3/uL (1-3.4); LYMPHOCYTES % (AUTO) 33 % (22-44); MD MORPH REVIEW ONLY; MEAN CORPUSCULAR HEMOGLOBIN 35.2 pg (27.5-34.5); MEAN CORPUSCULAR HGB CONC 33.4 g/dL (33.2-36.2); MEAN CORPUSCULAR VOLUME 105.4 fL (81-97); MEAN PLATELET VOLUME 11.9 fL (7.4-10.4); MONOCYTES # (AUTO) 0.51 x10^3/uL (0.2-0.8); MONOCYTES % (AUTO) 8 % (2-9); NEUTROPHILS # (AUTO) 3.49 x10^3/uL (1.8-6.8); NEUTROPHILS % (AUTO) 55 % (42-75); PLATELET COUNT 192 x10^3/uL (130-400); RED BLOOD COUNT 2.47 x10^6/uL (4.38-5.82); RED CELL DISTRIBUTION WIDTH 21.4 % (9.4-14.8)
[2018-04-07 10:57] LABS: HYPOCHROMIA 1+
[2018-04-07 10:59] LABS: <PLATELET ESTIMATE> ADEQUATE; LARGE PLATELETS 1+; OVALOCYTES 1+
[2018-04-07 11:00] LABS: ANISOCYTOSIS 1+
[2018-04-07] MEDS ORDERED: LABETALOL 5MG/ML, 20ML IVPush ONE (11:53)
[2018-04-07] MEDS ORDERED: LABETALOL 5MG/ML, 20ML ONE (11:58)
[2018-04-07 12:37] VITALS: BP 162/70
[2018-04-07 14:15] VITALS: BP 162/70
[2018-04-07] MEDS ORDERED: ONDANSETRON 2MG/ML, 2ML IVPush PRN (14:30)
[2018-04-07] MEDS ORDERED: ACETAMINOPHEN 325 MG TABLET PO PRN (14:30)
[2018-04-07] MEDS ORDERED: CALCITRIOL 0.25 MCG CAPSULE PO SCH (14:30)
[2018-04-07] MEDS ORDERED: NITROGLYCERIN 0.4 MG BOTTLE (25 TABS) SL SCH (14:30)
[2018-04-07] MEDS ORDERED: ONDANSETRON ODT 4 MG PO PRN (14:30)
[2018-04-07 16:50] LABS: TROPONIN I 0.041 ng/mL (0.000-0.045)
[2018-04-07] MEDS: HEPARIN 5,000 UNITS/ML, 1ML SQ SCH ×2 (17:09→22:46)
[2018-04-07 20:04] VITALS: BP 153/78
[2018-04-07] MEDS ORDERED: ISOSORBIDE MONONITRATE ER 60 MG TABLET PO SCH (21:00)
[2018-04-07] MEDS: PANTOPRAZOLE 40 MG IV IVPush SCH (21:47)
[2018-04-07] MEDS: SODIUM BICARBONATE 650 MG TABLET PO SCH (21:47)
[2018-04-07] MEDS: METOPROLOL TARTRATE 100 MG TABLET PO SCH (21:48)
[2018-04-07] MEDS: TAMSULOSIN 0.4 MG CAP.ER.24H PO SCH (21:48)
[2018-04-07] MEDS: ISOSORBIDE MONONITRATE ER 60 MG TABLET PO SCH (21:48)
[2018-04-07 23:45] LABS: TROPONIN I 0.038 ng/mL (0.000-0.045)
[2018-04-08] VITALS (11 sets, daily range): BP systolic 120–181; BP diastolic 62–107
[2018-04-08 05:03] LABS: BASOPHILS # (AUTO) 0.03 x10^3/uL (0-0.1); BASOPHILS % (AUTO) 1 % (0-1); EOSINOPHILS # (AUTO) 0.15 x10^3/uL (0-0.4); EOSINOPHILS % (AUTO) 3 % (1-7); LYMPHOCYTES # (AUTO) 2.38 x10^3/uL (1-3.4); LYMPHOCYTES % (AUTO) 45 % (22-44); MD NO; MEAN CORPUSCULAR HEMOGLOBIN 34.8 pg (27.5-34.5); MEAN CORPUSCULAR VOLUME 105.3 fL (81-97); MEAN PLATELET VOLUME 12.1 fL (7.4-10.4); MONOCYTES # (AUTO) 0.39 x10^3/uL (0.2-0.8); MONOCYTES % (AUTO) 7 % (2-9); NEUTROPHILS # (AUTO) 2.31 x10^3/uL (1.8-6.8); NEUTROPHILS % (AUTO) 44 % (42-75); PLATELET COUNT 170 x10^3/uL (130-400); RED BLOOD COUNT 2.05 x10^6/uL (4.38-5.82); RED CELL DISTRIBUTION WIDTH 22.1 % (9.4-14.8)
[2018-04-08 05:13] LABS: CHLORIDE 104 mmol/L (98-107)
[2018-04-08 05:24] LABS: ALANINE AMINOTRANSFERASE 16 U/L (12-78); ALBUMIN 3.2 g/dL (3.4-5.0); ALKALINE PHOSPHATASE 63 U/L (45-117); ANION GAP 10 mmol/L (5-15); BILIRUBIN,TOTAL 0.4 mg/dL (0.2-1.0); CALCIUM 8.1 mg/dL (8.5-10.1); CHOL/HDL RATIO 3.1; CHOLESTEROL, TOTAL 144 mg/dL (140-239); CREATININE 6.09 mg/dL (0.7-1.3); HDL CHOL % 32 % (26-37); HDL CHOLESTEROL (DIRECT) 46 mg/dL (40-60); LDL CHOLESTEROL,CALCULATED 79 mg/dL (54-169); LDL/HDL RATIO 1.7 (0.5-3.0); TOTAL PROTEIN 6.9 g/dL (6.4-8.2); TRIGLYCERIDES 96 mg/dL (50-200); VLDL CHOLESTEROL 19 mg/dL (0-25)
[2018-04-08] MEDS: HEPARIN 5,000 UNITS/ML, 1ML SQ SCH ×2 (06:36→14:17)
[2018-04-08] MEDS ORDERED: PHENYTOIN 100 MG CAPSULE PO SCH (09:00)
[2018-04-08] MEDS ORDERED: AMLODIPINE 10 MG TAB PO SCH (09:00)
[2018-04-08] MEDS ORDERED: CHOLECALCIFEROL 1,000 UNIT TABLET PO SCH (09:00)
[2018-04-08] MEDS ORDERED: FINASTERIDE 5 MG TABLET PO SCH (09:00)
[2018-04-08] MEDS ORDERED: ALPHA LIPOIC ACID 100 MG PO SCH (09:00)
[2018-04-08] MEDS ORDERED: FOLIC ACID 1 MG TABLET PO SCH (09:00)
[2018-04-08] MEDS ORDERED: ASPIRIN 81 MG TABLET EC PO SCH (09:00)
[2018-04-08] MEDS ORDERED: DOXAZOSIN 2MG TABLET PO SCH (09:00)
[2018-04-08 12:34] LABS: HEMOGLOBIN A1C 7.9 % (4.2-6.3)
[2018-04-08] MEDS: PANTOPRAZOLE 40 MG IV IVPush SCH (14:08)
[2018-04-08] MEDS: ISOSORBIDE MONONITRATE ER 60 MG TABLET PO SCH (14:11)
[2018-04-08] MEDS: TAMSULOSIN 0.4 MG CAP.ER.24H PO SCH (14:11)
[2018-04-08] MEDS: METOPROLOL TARTRATE 100 MG TABLET PO SCH (14:15)
[2018-04-08] MEDS: SODIUM BICARBONATE 650 MG TABLET PO SCH (14:16)
[2018-04-08] MEDS ORDERED: ARANESP 60 MCG/ML **ESRD SQ SCH (15:30)
== END 2018-04-08 17:09 | disposition home or self-care (01) ==
LOC: ED 10:20 → INTOOBSV 11:19 → EDIP 11:19 → 5SO 12:11 → DCLOUNGE 04-08 16:57
PROVIDERS: ADMIT Family Medicine; ATTEND Family Medicine
DX: R07.89 Other chest pain (principal); I25.10 Atherosclerotic heart disease of native coronary artery without angina pectoris; E11.22 Type 2 diabetes mellitus with diabetic chronic kidney disease; I13.11 Hypertensive heart and chronic kidney disease without heart failure, with stage 5 chronic kidney disease, or end stage renal disease; N18.6 End stage renal disease; Z99.2 Dependence on renal dialysis; D63.1 Anemia in chronic kidney disease; I48.0 Paroxysmal atrial fibrillation; D68.69 Other thrombophilia; N40.0 Benign prostatic hyperplasia without lower urinary tract symptoms; G40.909 Epilepsy, unspecified, not intractable, without status epilepticus; I34.0 Nonrheumatic mitral (valve) insufficiency; E44.0 Moderate protein-calorie malnutrition; E87.5 Hyperkalemia; Z79.84 Long term (current) use of oral hypoglycemic drugs; Z87.891 Personal history of nicotine dependence; Z95.5 Presence of coronary angioplasty implant and graft
CPT/HCPCS: 36415; 36430; 71045; 80053; 80061; 82728; 83036; 83540; 83550; 83690; 83735; 84100; 84466; 84484; 85025; 86850; 86900; 86923; 93005; 93306; 96372; 96374; 96376; 99285; C9113; G0378; J1644; P9016; 96375

== ENCOUNTER 2018-04-28 18:05 | Inpatient (IN) | payer MEDICARE, OTHER ==
[~2018-04-28] VITALS: Ht 170.2 cm; Wt 65.5 kg
[~2018-04-28 18:05] MED LIST changes: +ALPH100C PO; +GLIP5TAB22 PO; +ISOS60TA36 PO; +METO-99 PO; +UBID100C24 PO; +VITA1TAB19 PO
[2018-04-28] MEDS ORDERED: LOSA100T7 PO (18:45)
[2018-04-28] MEDS ORDERED: TAMS-11 PO (18:45)
[2018-04-28] MEDS ORDERED: CARV12.543 PO (18:45)
[2018-04-28 19:19] LABS: BASOPHILS # (AUTO) 0.02 x10^3/uL (0-0.1); BASOPHILS % (AUTO) 0 % (0-1); EOSINOPHILS # (AUTO) 0.06 x10^3/uL (0-0.4); EOSINOPHILS % (AUTO) 1 % (1-7); LYMPHOCYTES # (AUTO) 1.19 x10^3/uL (1-3.4); LYMPHOCYTES % (AUTO) 24 % (22-44); MD NO; MEAN CORPUSCULAR HEMOGLOBIN 32.8 pg (27.5-34.5); MEAN CORPUSCULAR HGB CONC 33.2 g/dL (33.2-36.2); MEAN CORPUSCULAR VOLUME 98.7 fL (81-97); MONOCYTES # (AUTO) 0.55 x10^3/uL (0.2-0.8); MONOCYTES % (AUTO) 11 % (2-9); NEUTROPHILS # (AUTO) 3.04 x10^3/uL (1.8-6.8); NEUTROPHILS % (AUTO) 63 % (42-75); PLATELET COUNT 177 x10^3/uL (130-400); RED BLOOD COUNT 2.37 x10^6/uL (4.38-5.82); RED CELL DISTRIBUTION WIDTH 19.8 % (9.4-14.8)
[2018-04-28 19:30] LABS: ALANINE AMINOTRANSFERASE 19 U/L (12-78); ALBUMIN 3.8 g/dL (3.4-5.0); ANION GAP 9 mmol/L (5-15); CALCIUM 8.7 mg/dL (8.5-10.1); CHLORIDE 99 mmol/L (98-107); CREATININE 4.19 mg/dL (0.7-1.3)
[2018-04-28 19:34] LABS: ALKALINE PHOSPHATASE 70 U/L (45-117); BILIRUBIN,TOTAL 0.6 mg/dL (0.2-1.0); TOTAL PROTEIN 7.7 g/dL (6.4-8.2); TROPONIN I 0.082 ng/mL (0.000-0.045)
[2018-04-28] MEDS ORDERED: ONDANSETRON 2MG/ML, 2ML ONE (19:45)
[2018-04-28] MEDS ORDERED: ASPIRIN 81 MG TABLET CHEW ONE (19:58)
[2018-04-28] MEDS ORDERED: ONDANSETRON 2MG/ML, 2ML IVPush ONE (20:00)
[2018-04-28] MEDS ORDERED: ASPIRIN 81 MG TABLET CHEW PO ONE (20:00)
[2018-04-28] MEDS ORDERED: OMNIPAQUE 350 MG/ML, 100ML BOTTLE ONE (20:11)
[2018-04-28] MEDS ORDERED: hydrALAzine 20 MG/ML, 1ML IVPush PRN (22:00)
[2018-04-28] MEDS ORDERED: ONDANSETRON ODT 4 MG PO PRN (22:00)
[2018-04-28] MEDS ORDERED: GABAPENTIN 300 MG CAPSULE PO PRN (22:00)
[2018-04-28] MEDS ORDERED: DOCUSATE 100 MG CAPSULE PO PRN (22:00)
[2018-04-28] MEDS ORDERED: ACETAMINOPHEN 325 MG TABLET PO PRN (22:00)
[2018-04-28] MEDS: OMEPRAZOLE 20 MG CAPSULE.DR PO SCH (23:21)
[2018-04-28] MEDS: CARVEDILOL 12.5 MG TABLET PO SCH (23:21)
[2018-04-28] MEDS ORDERED: morphine SULFATE 10 MG/ML, 1ML IVPush PRN (23:30)
[2018-04-28] MEDS ORDERED: ONDANSETRON 2MG/ML, 2ML IVPush PRN (23:30)
[2018-04-28 23:43] VITALS: BP 166/71
[2018-04-29] VITALS (8 sets, daily range): BP systolic 108–127; BP diastolic 57–66
[2018-04-29] MEDS: ISOSORBIDE MONONITRATE ER 60 MG TABLET PO SCH ×6 (01:06→20:51)
[2018-04-29 03:23] LABS: TROPONIN I 0.936 ng/mL (0.000-0.045)
[2018-04-29] MEDS ORDERED: HEPARIN 5,000 UNITS/ML, 1ML IV PRN (04:30)
[2018-04-29] MEDS ORDERED: HEPARIN 25,000 UNITS/500ML PMX 500 ML IV PRN (04:30)
[2018-04-29] MEDS: ASPIRIN 81 MG TABLET EC PO SCH (05:52)
[2018-04-29] MEDS ORDERED: LINAGLIPTIN 5 MG TAB PO SCH (09:00)
[2018-04-29] MEDS: PHENYTOIN 100 MG CAPSULE PO SCH (09:07)
[2018-04-29] MEDS: FINASTERIDE 5 MG TABLET PO SCH (09:10)
[2018-04-29] MEDS: FOLIC ACID 1 MG TABLET PO SCH (09:10)
[2018-04-29] MEDS: OMEPRAZOLE 20 MG CAPSULE.DR PO SCH (09:10)
[2018-04-29] MEDS: CARVEDILOL 12.5 MG TABLET PO SCH ×2 (09:10→20:51)
[2018-04-29] MEDS: LOSARTAN 50MG TABLET PO SCH (09:11)
[2018-04-29] MEDS: DOXAZOSIN 2MG TABLET PO SCH (09:11)
[2018-04-29] MEDS: TAMSULOSIN 0.4 MG CAP.ER.24H PO SCH (09:11)
[2018-04-29] MEDS ORDERED: MAALOX/HYOSCYAMINE/LIDOCAINE 45 ML BTL PO PRN (10:30)
[2018-04-29 11:24] LABS: MEAN CORPUSCULAR VOLUME 99.9 fL (81-97); MEAN PLATELET VOLUME 10.9 fL (7.4-10.4); PLATELET COUNT 160 x10^3/uL (130-400); RED BLOOD COUNT 1.94 x10^6/uL (4.38-5.82); RED CELL DISTRIBUTION WIDTH 20.2 % (9.4-14.8)
[2018-04-29 11:26] LABS: CHLORIDE 99 mmol/L (98-107)
[2018-04-29 11:44] LABS: BASOPHILS # (AUTO) 0.02 x10^3/uL (0-0.1); BASOPHILS % (AUTO) 1 % (0-1); EOSINOPHILS # (AUTO) 0.09 x10^3/uL (0-0.4); EOSINOPHILS % (AUTO) 2 % (1-7); LYMPHOCYTES # (AUTO) 1.21 x10^3/uL (1-3.4); LYMPHOCYTES % (AUTO) 30 % (22-44); MD MORPH REVIEW ONLY; MONOCYTES # (AUTO) 0.46 x10^3/uL (0.2-0.8); MONOCYTES % (AUTO) 12 % (2-9); NEUTROPHILS % (AUTO) 55 % (42-75)
[2018-04-29 11:45] LABS: <PLATELET ESTIMATE> ADEQUATE; ANISOCYTOSIS 1+; LARGE PLATELETS 1+
[2018-04-29 11:47] LABS: HYPOCHROMIA 1+; OVALOCYTES 1+; POLYCHROMASIA 1+
[2018-04-29 11:50] LABS: ANION GAP 11 mmol/L (5-15); CALCIUM 8.1 mg/dL (8.5-10.1); CREATININE 5.09 mg/dL (0.7-1.3)
[2018-04-29] MEDS: CLOPIDOGREL 75 MG TABLET PO SCH (12:01)
[2018-04-29 12:22] LABS: INTERNATIONAL NORMALIZED RATIO 1.21 (0.93-1.1); PROTHROMBIN TIME 12.7 Seconds (9.6-11.5)
[2018-04-29] MEDS: INSULIN LISPRO 100 UNITS/ML, PEN SQ-INSULIN SCH ×3 (12:40→21:05)
[2018-04-29] MEDS: PANTOPRAZOLE 40 MG IV IVPush SCH (12:40)
[2018-04-29] MEDS ORDERED: MAGNESIUM SULFATE PMX 4GM/100M 100 ML IV ONE (13:00)
[2018-04-29] MEDS ORDERED: DARBEPOETIN 100 MCG/ML SQ SCH (16:30)
[2018-04-30 01:46] VITALS: BP 119/67
[2018-04-30] MEDS: PANTOPRAZOLE 40 MG IV IVPush SCH ×2 (01:49→14:00)
[2018-04-30 06:04] LABS: ANION GAP 12 mmol/L (5-15); CALCIUM 8.1 mg/dL (8.5-10.1); CHLORIDE 101 mmol/L (98-107)
[2018-04-30 06:07] LABS: BASOPHILS # (AUTO) 0.02 x10^3/uL (0-0.1); BASOPHILS % (AUTO) 0 % (0-1); EOSINOPHILS # (AUTO) 0.14 x10^3/uL (0-0.4); EOSINOPHILS % (AUTO) 2 % (1-7); LYMPHOCYTES # (AUTO) 2.51 x10^3/uL (1-3.4); LYMPHOCYTES % (AUTO) 42 % (22-44); MD NO; MEAN CORPUSCULAR HEMOGLOBIN 32.8 pg (27.5-34.5); MEAN CORPUSCULAR HGB CONC 33.6 g/dL (33.2-36.2); MEAN CORPUSCULAR VOLUME 97.8 fL (81-97); MEAN PLATELET VOLUME 10.2 fL (7.4-10.4); MONOCYTES # (AUTO) 0.71 x10^3/uL (0.2-0.8); MONOCYTES % (AUTO) 12 % (2-9); NEUTROPHILS # (AUTO) 2.62 x10^3/uL (1.8-6.8); NEUTROPHILS % (AUTO) 44 % (42-75); PLATELET COUNT 165 x10^3/uL (130-400); RED BLOOD COUNT 2.39 x10^6/uL (4.38-5.82); RED CELL DISTRIBUTION WIDTH 20.7 % (9.4-14.8)
[2018-04-30 06:28] LABS: % IRON SATURATION 71 % (20-55); CREATININE 6.43 mg/dL (0.7-1.3); IRON LEVEL 124 mcg/dL (65-175); TOTAL IRON BINDING CAPACITY 174 mcg/dL (250-450)
[2018-04-30] MEDS: ASPIRIN 81 MG TABLET EC PO SCH (07:00)
[2018-04-30] MEDS: ISOSORBIDE MONONITRATE ER 60 MG TABLET PO SCH ×5 (07:01→20:45)
[2018-04-30 07:34] LABS: RED BLOOD COUNT 2.39 x10^6/uL (4.38-5.82)
[2018-04-30 07:36] VITALS: BP 134/74
[2018-04-30 07:45] LABS: ABSOLUTE RETICS # 0.044 x10^6/uL (0.5-1.5); RETICULOCYTE COUNT % 1.84 % (0.5-1.5)
[2018-04-30] MEDS: INSULIN LISPRO 100 UNITS/ML, PEN SQ-INSULIN SCH ×4 (07:57→20:46)
[2018-04-30 08:25] LABS: FOLATE LEVEL > 20.0 ng/mL (3.1-17.5)
[2018-04-30] MEDS: PHENYTOIN 100 MG CAPSULE PO SCH (13:41)
[2018-04-30] MEDS: FINASTERIDE 5 MG TABLET PO SCH (13:41)
[2018-04-30] MEDS: CLOPIDOGREL 75 MG TABLET PO SCH (13:41)
[2018-04-30] MEDS: LOSARTAN 50MG TABLET PO SCH (13:41)
[2018-04-30] MEDS: CARVEDILOL 12.5 MG TABLET PO SCH ×2 (13:41→20:45)
[2018-04-30] MEDS: TAMSULOSIN 0.4 MG CAP.ER.24H PO SCH (13:41)
[2018-04-30] MEDS: DOXAZOSIN 2MG TABLET PO SCH (13:42)
[2018-04-30] MEDS: FOLIC ACID 1 MG TABLET PO SCH (13:42)
[2018-04-30 14:00] VITALS: BP_SYST 130; BP_SYST 134; BP_DIAS 68; BP_DIAS 74
[2018-04-30 14:42] VITALS: BP 152/70
[2018-04-30 18:55] VITALS: BP 101/55
[2018-04-30 20:43] VITALS: BP 121/60
[2018-05-01 02:00] VITALS: BP 118/58
[2018-05-01] MEDS: PANTOPRAZOLE 40 MG IV IVPush SCH ×2 (02:16→13:47)
[2018-05-01] MEDS: ASPIRIN 81 MG TABLET EC PO SCH (05:49)
[2018-05-01] MEDS: ISOSORBIDE MONONITRATE ER 60 MG TABLET PO SCH ×2 (05:49→11:11)
[2018-05-01 06:02] LABS: ALBUMIN 3.4 g/dL (3.4-5.0); ANION GAP 10 mmol/L (5-15); BASOPHILS # (AUTO) 0.03 x10^3/uL (0-0.1); BASOPHILS % (AUTO) 1 % (0-1); CALCIUM 8.1 mg/dL (8.5-10.1); CHLORIDE 99 mmol/L (98-107); EOSINOPHILS # (AUTO) 0.14 x10^3/uL (0-0.4); EOSINOPHILS % (AUTO) 3 % (1-7); LYMPHOCYTES # (AUTO) 1.64 x10^3/uL (1-3.4); LYMPHOCYTES % (AUTO) 36 % (22-44); MD NO; MEAN CORPUSCULAR HEMOGLOBIN 33.4 pg (27.5-34.5); MEAN CORPUSCULAR HGB CONC 34.4 g/dL (33.2-36.2); MEAN CORPUSCULAR VOLUME 97.2 fL (81-97); MEAN PLATELET VOLUME 10.6 fL (7.4-10.4); MONOCYTES # (AUTO) 0.64 x10^3/uL (0.2-0.8); MONOCYTES % (AUTO) 14 % (2-9); NEUTROPHILS # (AUTO) 2.12 x10^3/uL (1.8-6.8); NEUTROPHILS % (AUTO) 46 % (42-75); PLATELET COUNT 185 x10^3/uL (130-400); RED BLOOD COUNT 2.56 x10^6/uL (4.38-5.82); RED CELL DISTRIBUTION WIDTH 20.5 % (9.4-14.8)
[2018-05-01 06:09] LABS: % IRON SATURATION 55 % (20-55); ALANINE AMINOTRANSFERASE 19 U/L (12-78); ALKALINE PHOSPHATASE 61 U/L (45-117); BILIRUBIN,TOTAL 0.4 mg/dL (0.2-1.0); CREATININE 4.33 mg/dL (0.7-1.3); IRON LEVEL 80 mcg/dL (65-175); TOTAL IRON BINDING CAPACITY 145 mcg/dL (250-450); TOTAL PROTEIN 7.5 g/dL (6.4-8.2)
[2018-05-01 06:50] VITALS: BP 126/65
[2018-05-01] MEDS: INSULIN LISPRO 100 UNITS/ML, PEN SQ-INSULIN SCH ×2 (07:00→11:17)
[2018-05-01] MEDS ORDERED: CALCIUM CARBONATE 500 MG TAB.CHEW PO PRN (07:30)
[2018-05-01] MEDS: FINASTERIDE 5 MG TABLET PO SCH (08:34)
[2018-05-01] MEDS: PHENYTOIN 100 MG CAPSULE PO SCH (08:34)
[2018-05-01] MEDS: CARVEDILOL 12.5 MG TABLET PO SCH (08:35)
[2018-05-01] MEDS: DOXAZOSIN 2MG TABLET PO SCH (08:35)
[2018-05-01] MEDS: LOSARTAN 50MG TABLET PO SCH (08:35)
[2018-05-01] MEDS: CLOPIDOGREL 75 MG TABLET PO SCH (08:35)
[2018-05-01] MEDS: FOLIC ACID 1 MG TABLET PO SCH (08:35)
[2018-05-01] MEDS: TAMSULOSIN 0.4 MG CAP.ER.24H PO SCH (08:35)
[2018-05-01] MEDS ORDERED: CLOP75TA PO (10:39)
[2018-05-01] MEDS ORDERED: ONDANSETRON ODT 4 MG PO ONE (15:00)
== END 2018-05-01 14:45 | disposition home health service (06) | DRG 280 ==
LOC: ED 18:29 → EDIP 20:46 → 5SO 22:45 → DCLOUNGE 05-01 13:55
PROVIDERS: ADMIT Internal Medicine; ATTEND Internal Medicine
PROC: 30233N1 Transfusion of Nonautologous Red Blood Cells into Peripheral Vein, Percutaneous Approach (ICD-10-PCS; 2018-04-29)
PROC: BD11YZZ Fluoroscopy of Esophagus using Other Contrast (ICD-10-PCS; 2018-04-29)
PROC: 5A1D70Z Performance of Urinary Filtration, Intermittent, Less than 6 Hours Per Day (ICD-10-PCS; principal; 2018-04-30)
DX: I21.4 Non-ST elevation (NSTEMI) myocardial infarction (principal); N18.6 End stage renal disease; I13.2 Hypertensive heart and chronic kidney disease with heart failure and with stage 5 chronic kidney disease, or end stage renal disease; I50.32 Chronic diastolic (congestive) heart failure; D68.69 Other thrombophilia; E87.2 Acidosis; I47.2 Ventricular tachycardia; N25.81 Secondary hyperparathyroidism of renal origin; Z99.2 Dependence on renal dialysis; I48.2 Chronic atrial fibrillation; D50.9 Iron deficiency anemia, unspecified; D53.9 Nutritional anemia, unspecified; D63.1 Anemia in chronic kidney disease; E11.22 Type 2 diabetes mellitus with diabetic chronic kidney disease; E78.5 Hyperlipidemia, unspecified; E83.42 Hypomagnesemia; G40.909 Epilepsy, unspecified, not intractable, without status epilepticus; G47.33 Obstructive sleep apnea (adult) (pediatric); I25.119 Atherosclerotic heart disease of native coronary artery with unspecified angina pectoris; I45.10 Unspecified right bundle-branch block; K21.9 Gastro-esophageal reflux disease without esophagitis; N25.0 Renal osteodystrophy; E11.21 Type 2 diabetes mellitus with diabetic nephropathy; R91.1 Solitary pulmonary nodule; K22.9 Disease of esophagus, unspecified; N40.0 Benign prostatic hyperplasia without lower urinary tract symptoms; Z66 Do not resuscitate; Z79.84 Long term (current) use of oral hypoglycemic drugs; Z86.010 Personal history of colon polyps; Z87.440 Personal history of urinary (tract) infections; Z87.891 Personal history of nicotine dependence; Z88.8 Allergy status to other drugs, medicaments and biological substances; Z95.5 Presence of coronary angioplasty implant and graft; Z98.41 Cataract extraction status, right eye; Z98.42 Cataract extraction status, left eye
CPT/HCPCS: 0399T; 36415; 36430; 71045; 71275; 74175; 74220; 80048; 80053; 82306; 82607; 82728; 82746; 82962; 83540; 83550; 83615; 83735; 83970; 84100; 84443; 84484; 84550; 85014; 85018; 85025; 85045; 85520; 85610; 86850; 86900; 86923; 93005; 93306; 96374; G0378; J0881; J1644; J2405; Q0162; Q9967; C9113; J1815; J3475; P9016

== ENCOUNTER 2018-09-21 14:06 | Emergency (ER) | payer MEDICARE, OTHER ==
[~2018-09-21] VITALS: Ht 170.2 cm; Wt 62.2 kg
[~2018-09-21 14:06] MED LIST changes: -AMLO10TA6 PO; +AMLO10TA8 PO; +CLOP75TA PO; +LOSA100T14 PO
[2018-09-21 14:59] LABS: ALBUMIN 3.9 g/dL (3.4-5.0); ANION GAP 12 mmol/L (5-15); CALCIUM 8.9 mg/dL (8.5-10.1); CHLORIDE 98 mmol/L (98-107); CREATININE 4.46 mg/dL (0.7-1.3)
[2018-09-21 15:14] LABS: MD YES; MEAN CORPUSCULAR HEMOGLOBIN 37.7 pg (27.5-34.5); MEAN CORPUSCULAR HGB CONC 32.3 g/dL (33.2-36.2); MEAN CORPUSCULAR VOLUME 116.8 fL (81-97); MEAN PLATELET VOLUME 12.4 fL (7.4-10.4); PLATELET COUNT 182 x10^3/uL (130-400); RED BLOOD COUNT 2.84 x10^6/uL (4.38-5.82); RED CELL DISTRIBUTION WIDTH 21.4 % (9.4-14.8)
[2018-09-21 15:16] LABS: LYMPH#(MANUAL) 1.53 x10^3/uL (1-3.4); LYMPHS% (MANUAL) 14 % (22-44); MONOS#(MANUAL) 0.76 x10^3/uL (0.3-2.7); MONOS% (MANUAL) 7 % (2-9); SEG#(MANUAL) 8.61 x10^3/uL (1.8-6.8); SEGS% (MANUAL) 79 % (42-75)
[2018-09-21 15:17] LABS: <PLATELET ESTIMATE> ADEQUATE; ANISOCYTOSIS 2+; GIANT PLATELETS 1+; HYPOCHROMIA 1+; LARGE PLATELETS 1+; OVALOCYTES 1+; POLYCHROMASIA 1+; SMUDGE CELLS 1+
[2018-09-21] MEDS ORDERED: ALBUTEROL SULFATE 2.5 MG/3 ML NPPB ONE (16:30)
--- NOTE | 2018-09-21 16:32 | NUR ---
Productive cough w/ green sputum x several months, worse past couple weeks. Pt is tachypneic, SPO2 WNL. No distress, speaks full sentences. Cardiac, NIBP & SPO2 monitors IP.
[2018-09-21] MEDS ORDERED: ALBUTEROL SULFATE 2.5 MG/3 ML ONE (16:36)
--- NOTE | 2018-09-21 16:48 | NUR ---
Has been seen by Dr. Jimenez. POC to go home after neb tx. Pt & daughter aware & agreeable to plan.
[2018-09-21 17:07] LABS: RAPID INFLUENZA A Negative (Negative); RAPID INFLUENZA B Negative (Negative)
--- NOTE | 2018-09-21 17:28 | NUR ---
All results back, pt resting comfortably, no distress. Awaiting recheck by ER
--- NOTE | 2018-09-21 17:35 | NUR ---
CT chest ordered. Pt & daughter aware.
--- NOTE | 2018-09-21 18:12 | NUR ---
CT called- delay due to volume
--- NOTE | 2018-09-21 18:30 | NUR ---
Pt to CT
[2018-09-21 18:44] VITALS: BP 178/77
--- NOTE | 2018-09-21 19:06 | NUR ---
report from [facility]ight assumed care of pt
== END 2018-09-21 19:53 | disposition home or self-care (01) ==
LOC: ED 19:47
DX: J15.9 Unspecified bacterial pneumonia (principal); J06.9 Acute upper respiratory infection, unspecified; I25.2 Old myocardial infarction; E11.9 Type 2 diabetes mellitus without complications; I11.9 Hypertensive heart disease without heart failure
CPT/HCPCS: 36415; 71046; 71250; 80048; 82040; 83605; 85025; 87040; 87400; 93005; 94640; 99284; J7613